=== PATIENT | male | born 1975 | race American Indian/Alaskan Native ===

== ENCOUNTER 2021-01-26 00:08 | Emergency (ER) | payer SELFPAY ==
[2021-01-26] MEDS ORDERED: ASPIRIN 325 MG TAB PO ONE (04:26)
--- NOTE | 2021-01-26 05:00 | XRay Report ---
CHEST 2 VIEWS INDICATION / CLINICAL INFORMATION: chestpain. COMPARISON: None available. FINDINGS: SUPPORT DEVICES: None. HEART / MEDIASTINUM: No significant abnormality. Calcified right perihilar granulomas. LUNGS / PLEURA: No significant pulmonary or pleural abnormality. No pneumothorax. ADDITIONAL FINDINGS: No significant additional findings. IMPRESSION: 1. No acute findings. Signer Name: Sameer Angeles MD Signed: 01/26/2021 4:55 AM Workstation Name: [id number]
[2021-01-26 05:17] LABS: Basophils # (Auto) 0.1 K/mm3 (0.0-0.1); Basophils % (Auto) 1.9 % (0.0-1.8); Eosinophils % (Auto) 0.1 % (0.0-4.3); Hematocrit 50.4 % (35.5-45.6); Hemoglobin 16.6 gm/dl (11.8-15.2); Lymphocytes # (Auto) 1.4 K/mm3 (1.2-5.4); Lymphocytes % (Auto) 17.5 % (13.4-35.0); Mean Corpuscular HGB Conc 33 % (32-34); Mean Corpuscular Volume 87 fl (84-94); Monocytes % (Auto) 13.3 % (0.0-7.3); Platelet Count 142 K/mm3 (140-440); Red Blood Count 5.77 M/mm3 (3.65-5.03); Red Cell Distribution Width 14.4 % (13.2-15.2)
[2021-01-26 05:37] LABS: Alanine Aminotransferase 21 units/L (7-56); Albumin 4.3 g/dL (3.9-5); BUN/Creatinine Ratio 13; Blood Urea Nitrogen 15 mg/dL (9-20); Calcium 9.2 mg/dL (8.4-10.2); Hemolysis Index 7
--- NOTE | 2021-01-26 10:42 | Electrocardiograph Report ---
[facility] Test Date: 2021-01-26 Test Time: 04:21:50 Pat Name: RAYMOND BRAVO Department: Room: Gender: M Nail Sticker: JHOANA : [id number] Requested By: ED DOC Order Number: [id number] Reading MD: Barry Kendall Measurements Intervals [place] Rate: 95 P: 58 TX: 147 QRS: 25 QRSD: 88 T: -5 QT: 360 QTc: 453 Interpretive Statements Sinus rhythm Probable left atrial enlargement ASMI. LAE Nonspecific T abnormalities, diffuse leads No previous ECG available for comparison Electronically Signed On 01-26-2021 10:42:36 EDT by Barry Kendall
[2021-01-27 04:33] VITALS: BP 157/106
--- NOTE | 2021-01-27 05:15 | Emergency Department Report ---
ED Abdominal Pain HPI - General Chief Complaint: Chest Pain Stated Complaint: CHEST PAIN @8PM PAIN PUI?: Yes Time Seen by Provider: 01/27/21 04:15 Source: patient Mode of arrival: Stretcher Limitations: No Limitations - History of Present Illness Initial Comments: 45-year-old male presents emergency department complaining of 3 to 4 days history of chest pain has been off and on since the onset and dull pressure-like fashion. No palliative or palliative factors no hemoptysis hematemesis hematochezia, no fever, chills, sweats. Reports no nausea, no vomiting. No trauma to his knowledge. He reports no known contact with coronavirus reports no fevers associated with this produced some mucus with coughing occasionally requesting food no acute distress ambulatory MD Complaint: abdominal pain Severity: mild Severity scale (0 -10): 0 Quality: dull Consistency: constant Improves With: nothing Worsens With: nothing Associated Symptoms: denies other symptoms - Related Data Allergies Allergy/AdvReac Type Severity Reaction Status Date / Time Penicillins Allergy Itching Verified 01/26/21 04:19 ED Review of Systems ROS: Stated complaint: CHEST PAIN @8PM PAIN Other details as noted in HPI Comment: All other systems reviewed and negative ED Past Medical Hx - Past Medical History Previous Medical History?: Yes Hx Hypertension: Yes Hx Congestive Heart Failure: Yes Hx Asthma: Yes - Surgical History Past Surgical History?: No - Social History Smoking Status: Current Every Day Smoker Substance Use Type: Marijuana ED Physical Exam - General Limitations: No Limitations General appearance: alert, in no apparent distress - Head Head exam: Present: atraumatic, normocephalic - Eye Eye exam: Present: normal appearance, PERRL, EOMI Pupils: Present: normal accommodation - ENT ENT exam: Present: normal exam, normal orophraynx, mucous membranes moist, TM's normal bilaterally - Neck Neck exam: Present: normal inspection, full ROM - Respiratory Respiratory exam: Present: normal lung sounds bilaterally. Absent: respiratory distress - Cardiovascular Cardiovascular Exam: Present: regular rate, normal rhythm. Absent: systolic murmur, diastolic murmur, rubs, gallop - GI/Abdominal GI/Abdominal exam: Present: soft, normal bowel sounds - Rectal Rectal exam: Present: deferred - Extremities Exam Extremities exam: Present: normal inspection - Back Exam Back exam: Present: normal inspection. Absent: CVA tenderness (R), CVA tenderness (L) - Neurological Exam Neurological exam: Present: alert, oriented X3, CN II-XII intact - Psychiatric Psychiatric exam: Present: normal affect, normal mood - Skin Skin exam: Present: warm, dry, intact, normal color. Absent: rash ED Course Vital Signs 01/26/21 01/27/21 04:16 04:32 Temperature 99.5 F 100.1 F H Pulse Rate 94 H 96 H Respiratory 18 19 Rate Blood Pressure 132/93 Blood Pressure 157/106 [Right] O2 Sat by Pulse 96 96 Oximetry ED Medical Decision Making - Lab Data Result diagrams: 01/26/21 04:51 01/26/21 04:51 - EKG Data Interpretation: normal EKG - Radiology Data Radiology results: report reviewed Normal chest x-ray - Medical Decision Making This patient presents with chest pain that is very unlikely angina or acute coronary syndrome. The emergency department evaluation has not identified any cause for suspicion that this chest pain has a cardiac etiology. Based on their history, EKG (which showed no evidence of ischemia or infarction) and imaging, in addition to the patient's physical exam, I see no evidence at this time for a malignant etiology for the patient's chest pain. There is no acute evidence for pulmonary embolus, acute myocardial infarction, pneumothorax, Boerhaeve syndrome, cardiac tamponade, thoracic artery dissection, or any other emergent cardiac, pulmonary or aortic pathology. Given the low pre-test probability for cardiac etiology of chest pain and the absence of any sign of ischemia or infarction, discharge for outpatient follow-up and further evaluation is reasonable. I have explained to the patient that even though a cardiac problem is very unlikely, follow-up and further testing is required to reduce further the already small uncertainty that exists. Other life-threatening diagnoses have been considered. The patient understands the need to return immediately if their symptoms worsen or they develop any new symptoms, and not to engage in any significant exertional activity until follow-up is obtained. Critical care attestation.: If time is entered above; I have spent that time in minutes in the direct care of this critically ill patient, excluding procedure time. ED Disposition Clinical Impression: Chest pain Disposition: HOME / SELF CARE / HOMELESS Is pt being admited?: No Does the pt Need Aspirin: No Condition: Stable Instructions: Nonspecific Chest Pain, Adult, Chest Wall Pain, [id number] Referrals: PRIMARY CARE, [Primary Care Provider] - 3-5 Days TEDDY ROSE MD [Staff Physician] - 3-5 Days SAIDA CAMPBELL MD [Staff Physician] - 3-5 Days
[2021-01-27] MEDS ORDERED: KETOROLAC 60 MG/2 ML INJ IM ONE (06:55)
== END 2021-01-27 08:26 | disposition home or self-care (01) ==
LOC: ED 00:08
DX: R07.9 Chest pain, unspecified (principal); I11.0 Hypertensive heart disease with heart failure; I50.9 Heart failure, unspecified; J45.909 Unspecified asthma, uncomplicated; F17.200 Nicotine dependence, unspecified, uncomplicated; F12.90 Cannabis use, unspecified, uncomplicated; Z88.0 Allergy status to penicillin; Z79.899 Other long term (current) drug therapy
CPT/HCPCS: 36415; 71046; 80053; 84484; 85025; 93005; 96372; 99284; J1885